=== PATIENT | male | born 1990 | race Caucasian/White ===

== ENCOUNTER 2021-04-03 18:17 | Emergency (ER) | payer OTHER, SELFPAY ==
--- NOTE | ~2021-04-03 | XR_ITS ---
EXAMINATION: XR foot RT min 3V DATE: 04/03/2021 19:57 INDICATION: Pain at the plantar aspect of the right fourth toe. The fourth and fifth toes after adeline ing on leg 03 weeks prior TECHNIQUE: Dorsoplantar, two oblique and lateral views of the right foot were obtained. COMPARISON: None. FINDINGS: Alignment is normal. No fracture. Joint spaces are normal. Small Achilles calcaneal spur. Soft tissue s are unremarkable. IMPRESSION: 1. No acute osseous abnormality. Reviewed, dictated and finalized at location A.
[2021-04-03 19:30] VITALS: BP 154/104; PULSE 100; RESP 20; TEMP 36.8; O2SAT 98
--- NOTE | 2021-04-03 19:41 | ED.EXTPRO ---
HPI - Extremity Problem General Chief complaint: Extremity Problem,Nontraumatic Stated complaint: right foot swollen and painful Source: patient and RN notes reviewed Mode of arrival: ambulatory Limitations: no limitations History of Present Illness HPI Narrative: patient states that he stepped on Lego about 3 weeks ago. It started swelling having pain today. Complaint: extremity pain and extremity swelling Onset (ago): day(s) (1) Pain Consistency: constant Location: right and lower extremity (foot) Severity scale (1-10): 5 Quality: aching and dull Radiation: distal Relieving factors: nothing Exacerbating factors: weight bearing, walking and palpation Associated symptoms: denies other symptoms Related Data Home Medications Medication Instructions Recorded Confirmed No Home Medications 04/03/21 04/03/21 Allergies Allergy/AdvReac Type Severity Reaction Status Date / Time ranitidine AdvReac Intermediate Other Unverified 10/24/17 17:29 STEROIDS Allergy Unknown Unknown Uncoded 04/03/21 19:54 Review of Systems Review of Systems: All systems reviewed & are unremarkable except as noted in HPI and below Constitutional: Constitutional: Denies chills and Denies fever(s) PMFSH Past Medical History Medical History (Updated 04/04/21 @ 00:01 by Gab Marcano) Morbid obesity Surgical History Surgical History (Updated 04/03/21 @ 19:49 by Jalen Morris MD) H/O adenoidectomy History of appendectomy Social History Social History (Updated 04/03/21 @ 19:49 by Jalen Morris MD) Smoking status: Never smoker Alcohol intake: never Substance use: current Substance use type: marijuana Exam Const: General: healthy appearing, no acute distress and alert Nutritional Appearance: well nourished and obese morbidly obese Orientation/consciousness: patient oriented x3 HENMT: Head: normal to inspection Ears: external ears normal Mouth: Yes moist mucous membranes Eyes: Conjunctivae: conjunctivae normal Pupils: Equal, round and reactive pupils present EOM: EOMs intact bilaterally Neck: Neck: normal visual inspection Resp: Effort & Inspection: normal respiratory effort Auscultation: clear to auscultation bilaterally Cardio: Rate: regular rate Rhythm: regular rhythm GI: GI Palp: Yes Soft to palpation and No Tenderness to palpation present (GI) Auscultation: normal bowel sounds Back/Spine/Pelvis: Cervical Spine: cervical ROM normal Thoracic/Lumbar Spine: thoraco-lumbar ROM normal Skin: General skin exam: normal color Rashes: no rashes Neuro: General: patient oriented x3, moves all extremities and no focal motor deficits Speech: normal speech Gait exam (Neuro): Normal gait present Extrem: General: full ROM and no calf tenderness Right lower extremity: foot Details: normal capillary refill, tenderness Location: of the plantar foot Location: distally ( over the 4th metacarpal phalangeal joint) and edema Location: of the dorsal foot ( nonpitting) Location: distally, proximally and laterally; no abrasion, no laceration, no ecchymosis and no puncture wound Psych: Appearance: grossly normal and well kempt Mental Status: mental status grossly normal Affect: normal affect Attitude: cooperative Thought content: Yes Normal thought content present MDM - Extremity (Nontraumatic) MDM Narrative Medical decision making narrative: I considered tendinitis, bone contusion, gout, and fracture. Offered patient blood work for test for gout and he declined at this time and would follow up with his primary care physician. Discharge Plan Discharge Clinical Impression: Acute foot pain Qualifiers: Laterality: right Qualified Code(s): M79.671 - Pain in right foot Patient Disposition: Home, Self-Care Condition: Stable Instructions: Swollen Joint (ED) Additional Instructions: Elevate, follow-up with primary care physician as needed. Do not take any other ibuprofen, Motrin, Aleve, Advil while taking c
[2021-04-03] MEDS: KETOROLAC (*BKC) 60 MG/2 ML VIAL IM (20:13)
[2021-04-03 20:22] VITALS: BP 150/118; PULSE 77; RESP 18; TEMP 36.6; O2SAT 99
== END 2021-04-03 20:29 | disposition home or self-care (01) ==
PROVIDERS: Emergency Provider Emergency Medicine
DX: M79.671 Pain in right foot (principal)
CPT/HCPCS: 73630; 96372; 99283; J1885

== ENCOUNTER 2021-05-02 07:57 | Outpatient (CLI) | payer OTHER, SELFPAY ==
[2021-05-02 09:56] LABS: Alanine Aminotransferase 64 U/L (16-63); Albumin Level 3.7 g/dL (3.4-5.0); Alkaline Phosphatase 52 U/L (46-116); Anion Gap 10 mmol/L (8-16); Aspartate Amino Transferase 18 U/L (15-37); Bilirubin,Total 0.3 mg/dL (0.00-1.00); Blood Urea Nitrogen 14 mg/dL (7-18); Calcium 8.7 mg/dL (8.5-10.1); Carbon Dioxide 27 mmol/L (21-32); Chloride 105 mmol/L (98-108); Estimated Glomerular Filt Rate > 60; Glucose 93 mg/dL (70-99); Osmolality Calculated 294 mOsm/kg (285-295); Potassium 4.5 mmol/L (3.5-5.1); Sodium 142 mmol/L (136-145)
[2021-05-05 18:40] LABS: H pylori, Urea Breath NOT DETECTED (NOT DETECTED)
== END 2021-05-02 07:58 | disposition home or self-care (01) ==
LOC: CHSLAB 07:59
PROVIDERS: PCP Family Medicine; Visit Provider Family Medicine
DX: K21.9 Gastro-esophageal reflux disease without esophagitis (principal)
CPT/HCPCS: 36415; 80053; 83013

== ENCOUNTER 2021-07-30 16:00 | Emergency (ER) | payer OTHER, SELFPAY ==
--- NOTE | 2021-07-30 16:12 | ED.HA ---
HPI - Headache General Stated Complaint: headache / work note Time Seen by Provider: 07/30/21 16:12 Source: patient and RN notes reviewed History of Present Illness HPI Narrative: Patient is a 31-year-old male who presents the urgent care with complaints of sore throat, headache, fatigue, nausea, vomiting and fever. Patient states that it started 2 days ago and he had a negative rapid test as of yesterday. Patient states that he got a PCR test today however his workplace is requesting a work note. Patient has not had the COVID-vaccine but denies any recent exposures. Patient has been taking Advil for his symptoms. No other acute complaints. No acute distress noted. Patient aware of the plan of care. Some parts of this dictation were generated by voice recognition software and may contain typographical and/or grammatical inaccuracies. Related Data Allergies Allergy/AdvReac Type Severity Reaction Status Date / Time ranitidine AdvReac Intermediate Other Verified 05/02/21 06:50 STEROIDS Allergy Unknown Unknown Uncoded 04/03/21 19:54 Review of Systems Review of Systems: CONSTITUTIONAL: Reports of fever and fatigue EYES: Denies visual changes, redness, or discharge. ENT: Reports of congestion, sore throat CARDIOVASCULAR: Denies chest pain, palpitations, or edema. RESPIRATORY: Denies cough or dyspnea. GASTROINTESTINAL: Reports of nausea with one episode of vomiting without abdominal pain or diarrhea GENITOURINARY: Denies dysuria or hematuria. SKIN: Denies rash or itching. MUSCULOSKELETAL: Denies back pain, joint pain, or myalgia. NEUROLOGIC: Reports of headache All other systems reviewed are negative, except as documented in HPI. [facility] Past Medical History Medical History Morbid obesity Surgical History Surgical History H/O adenoidectomy History of appendectomy Social History Social History (Updated 05/02/21 @ 07:27 by Ellie Gurrola) Smoking status: Former smoker Additional smoking assessment comments: Quit November 2020 Alcohol intake: never Substance use: current Substance use type: marijuana Comments At the time of my signature, I reviewed and agree with the nursing past medical, surgical, social, and family history. There is no relevant family history pertinent to the patient complaint. Exam Narrative: GENERAL: This is a well-nourished, well-developed patient, in no apparent distress. HEAD: normocephalic, atraumatic. EYES: PERRL. Sclera clear/white. Vision is grossly intact. EARS: External ears normal, auditory canals clear and without drainage, TMs normal without perforation. Hearing grossly intact. NOSE: External nose normal with no obvious nasal discharge, nares without redness, clear to yellow rhinorrhea. THROAT: Mucous membranes moist, posterior pharynx clear. Mild postnasal drainage NECK: Neck supple CARDIOVASCULAR: Regular rate and rhythm without murmurs, gallops, or rubs. RESPIRATORY: Clear to auscultation. Breath sounds equal bilaterally. No wheezes, rales, or rhonchi. GASTROINTESTINAL: Abdomen soft, non-tender, nondistended. SKIN: warm, intact with no suspicious lesions or rash, good texture and turgor. NEURO: awake, alert, and oriented to person, place and time. There were no obvious focal neurologic abnormalities. EXTREMITIES: No clubbing, cyanosis, or edema. Course Course Level of Care: Express Care Visit Vital Signs Vital signs: Vital Signs Temperature 98.8 F 07/30/21 16:18 Pulse Rate 100 07/30/21 16:18 Respiratory Rate 18 07/30/21 16:18 Blood Pressure 134/84 07/30/21 16:18 Pulse Oximetry 99 07/30/21 16:18 Temperature 98.8 F 07/30/21 16:18 Pulse Rate 100 07/30/21 16:18 Respiratory Rate 18 07/30/21 16:18 Blood Pressure 134/84 07/30/21 16:18 Pulse Oximetry 99 07/30/21 16:18 Reviewed MDM - Headache MDM Narrative Medical decision making n
[2021-07-30 16:18] VITALS: BP 134/84; PULSE 100; RESP 18; TEMP 37.1; O2SAT 99
== END 2021-07-30 16:35 | disposition home or self-care (01) ==
PROVIDERS: Emergency Provider Nurse Practitioner Family
DX: Z20.822 Contact with and (suspected) exposure to COVID-19 (principal); R51.9 Headache, unspecified; J02.9 Acute pharyngitis, unspecified; R53.83 Other fatigue; R11.2 Nausea with vomiting, unspecified; R50.9 Fever, unspecified; E66.01 Morbid (severe) obesity due to excess calories; Z68.41 Body mass index [BMI] 40.0-44.9, adult
CPT/HCPCS: 99211; G0463